=== PATIENT | male | born 1990 | race Caucasian/White ===

== ENCOUNTER → 2019-11-27 15:48 | Outpatient (BNVA) | payer OTHER, SELFPAY | PROVIDERS: Family Provider Orthopaedic Surgery Adult Reconstructive Orthopaedic Surgery; PCP Orthopaedic Surgery Adult Reconstructive Orthopaedic Surgery; Visit Provider Emergency Medicine | DX: R22.42 Localized swelling, mass and lump, left lower limb (principal); Z96.642 Presence of left artificial hip joint | CPT/HCPCS: 73552 ==

== ENCOUNTER → 2019-11-28 09:37 | Outpatient (BNVA) | payer OTHER, SELFPAY | PROVIDERS: Family Provider Orthopaedic Surgery Adult Reconstructive Orthopaedic Surgery; PCP Orthopaedic Surgery Adult Reconstructive Orthopaedic Surgery; Referring Provider Emergency Medicine; Visit Provider Emergency Medicine | DX: R22.42 Localized swelling, mass and lump, left lower limb (principal) | CPT/HCPCS: 80048 ==

== ENCOUNTER 2019-12-05 07:57 | Outpatient (CLI) | payer OTHER, SELFPAY ==
--- NOTE | 2019-12-05 08:00 | CT_ITS ---
NOTE: Report was unsigned for reason: Order was edited. Original Signature date and time was: 12/05/19 0915 WS: [id number] CT LEFT FEMUR WITH AND WITHOUT CONTRAST. HISTORY: soft tissue mass Technique: All CT scans at [facility] use at least one of these dose optimization techniques: automated exposure control; mA and/or kV adjustment per patient size (includes targeted exams where dose is matched to clinical indication); or iterative reconstruction. DLP: 3477.30 mGy-cm. COMPARISON: Femur radiograph 11/27/2019. Patient is status post LEFT hip arthroplasty. There is some beam hardening artifact from the arthroplasty. Palpable abnormality corresponds to a complex fluid collection in the inferior LEFT gluteus maria a muscle. This collection extends over a length of 8.8 cm x 7.0 x 2.4 cm. There is peripheral enhancement. This collection is within the inferior gluteus maria a muscle and extends along the junction with the biceps femoris muscle. There is adjacent subcutaneous edema and enhancement. There is an additional fluid collection posterior to the more proximal femur, mid shaft of the prosthesis. Collection is poorly visualized due to artifact from the hardware but measures 3.2 x 1.3 cm. No additional fluid collections. [facility] femur LT w con [id number] Impression: 1. Palpable area corresponds to a fluid collection with peripherally enhancing wall in the inferior LEFT gluteus maximum muscle measuring 8.8 x 7.0 x 2.4 cm. Abuts the proximal biceps femoris muscle. Abscess is likely. 2. Additional smaller fluid collection with peripheral enhancing wall in the mo re proximal gluteus maria a muscle at the level of the mid prosthesis. This col lection measures 3.2 x 1.3 cm. Additional abscess should be considered. 3. If the hip prosthesis placement was recent these may be associated with ster ile postoperative collections. As the tucker are enhancing abscesses need to be excluded. Suggest follow-up with orthopedics.
[2019-12-05] MEDS: iohexol 300 mg/mL 100 mL Btl IV (08:37)
== END 2019-12-05 07:58 | disposition home or self-care (01) ==
LOC: RADWPI 08:04
PROVIDERS: Family Provider Orthopaedic Surgery Adult Reconstructive Orthopaedic Surgery; PCP Emergency Medicine; Visit Provider Emergency Medicine
DX: R22.42 Localized swelling, mass and lump, left lower limb (principal); Z96.642 Presence of left artificial hip joint
CPT/HCPCS: 73700; 73701; 73702; Q9967

== ENCOUNTER 2024-10-15 10:33 | Oncology outpatient (recurring) (ONCR) | payer OTHER, SELFPAY ==
[2024-10-15 11:21] LABS: Basophils % 0.5 %; Eosinophils # 0.1 10^3/uL (0.0-0.8); Hematocrit 36.9 % (37-53); Lymphocytes % 16.1 %; Mean Corpuscular Volume 84.4 fl (82-101); Mean Platelet Volume 8.6 fL (7.4-10.4); Monocytes # 0.6 10^3/uL (0.2-0.9); Monocytes % 10.7 %; Neutrophils # 4.16 10^3/uL (1.8-7.7); Neutrophils % 69.5 %; Nucleated Red Blood Cells % 0 %; Platelet Count 366 10^3/cmm (157-399); Red Blood Count 4.37 10^6/uL (3.85-5.65); Red Cell Distribution Width 16.4 % (12.1-15.1); White Blood Count 5.98 10^3/uL (3.29-11.43)
[2024-10-15 11:34] LABS: Erythrocyte Sedimentation Rate 16 mm/hr (0-10)
[2024-10-15 11:47] LABS: Alanine Aminotransferase 316 U/L (0-41); Alkaline Phosphatase 162 U/L (40-130); Anion Gap 16.9 (5-19); Aspartate Amino Transferase 139 U/L (0-40); Blood Urea Nitrogen 15 mg/dL (6-20); C Reactive Protein 10.7 mg/L (0.0-4.9); Calcium 9.2 mg/dL (8.5-10.5); Carbon Dioxide 24 mmol/L (22-29); Chloride 105 mmol/L (98-107); Glomerular Filtration Rate 129.9 mL/min (90-130); Glucose 101 mg/dL (65-115); Osmolality Calculated 293 mOsm/kg (285-295); Potassium 4.9 mmol/L (3.5-5.1); Sodium 141 mmol/L (136-145); Total Bilirubin 0.3 mg/dL (0.15-1.2)
== END 2024-10-15 23:59 | disposition home or self-care (01) ==
PROVIDERS: Internal Medicine; Family Provider Orthopaedic Surgery Adult Reconstructive Orthopaedic Surgery; PCP Emergency Medicine; Visit Provider Internal Medicine Medical Oncology
DX: B95.8 Unspecified staphylococcus as the cause of diseases classified elsewhere (principal)
CPT/HCPCS: 36592; 80053; 85025; 85651; 86140

== ENCOUNTER 2024-11-06 11:06 | Outpatient (CLI) | payer OTHER, SELFPAY | END 2024-11-06 11:07 | disposition home or self-care (01) | PROVIDERS: Family Provider Orthopaedic Surgery Adult Reconstructive Orthopaedic Surgery; PCP Internal Medicine; Visit Provider Internal Medicine | DX: T84.59XS Infection and inflammatory reaction due to other internal joint prosthesis, sequela (principal); Z96.649 Presence of unspecified artificial hip joint; Z79.899 Other long term (current) drug therapy | CPT/HCPCS: 86140 ==

== ENCOUNTER 2024-11-07 11:00 | Outpatient (CLI) | payer OTHER, SELFPAY ==
[2024-11-07 11:30] LABS: Basophils # 0.1 10^3/uL (0.0-0.1); Basophils % 0.9 %; Eosinophils # 0.4 10^3/uL (0.0-0.8); Eosinophils % 5.8 %; Hematocrit 45.6 % (37-53); Lymphocytes # 1.6 10^3/uL (0.8-4.8); Lymphocytes % 24.4 %; Mean Corpuscular Volume 84.3 fl (82-101); Mean Platelet Volume 8.6 fL (7.4-10.4); Monocytes # 0.8 10^3/uL (0.2-0.9); Monocytes % 11.6 %; Neutrophils # 3.74 10^3/uL (1.8-7.7); Nucleated Red Blood Cells % 0 %; Platelet Count 377 10^3/cmm (157-399); Red Blood Count 5.41 10^6/uL (3.85-5.65); Red Cell Distribution Width 13.9 % (12.1-15.1); White Blood Count 6.56 10^3/uL (3.29-11.43)
[2024-11-07 11:34] LABS: Erythrocyte Sedimentation Rate 3 mm/hr (0-10)
[2024-11-07 11:49] LABS: Alanine Aminotransferase 140 U/L (0-41); Albumin Level 4.3 g/dL (3.5-5.2); Alkaline Phosphatase 171 U/L (40-130); Aspartate Amino Transferase 66 U/L (0-40); Blood Urea Nitrogen 15 mg/dL (6-20); Calcium 9.3 mg/dL (8.5-10.5); Carbon Dioxide 26 mmol/L (22-29); Chloride 103 mmol/L (98-107); Globulin 2.6 g/dL (1.3-4.6); Glomerular Filtration Rate 111.3 mL/min (90-130); Glucose 78 mg/dL (65-115); Osmolality Calculated 290 mOsm/kg (285-295); Sodium 140 mmol/L (136-145); Total Bilirubin 0.3 mg/dL (0.15-1.2); Total Protein 6.9 g/dL (6.6-8.7)
== END 2024-11-07 11:01 | disposition home or self-care (01) ==
LOC: LAB 11:01
PROVIDERS: Family Provider Orthopaedic Surgery Adult Reconstructive Orthopaedic Surgery; PCP Internal Medicine; Visit Provider Internal Medicine
DX: T84.59XS Infection and inflammatory reaction due to other internal joint prosthesis, sequela (principal); Z96.649 Presence of unspecified artificial hip joint; Z79.899 Other long term (current) drug therapy
CPT/HCPCS: 80053; 85025; 85651

== ENCOUNTER 2024-11-12 10:30 | Oncology outpatient (recurring) (ONCR) | payer OTHER, SELFPAY ==
[2024-10-22 11:02] LABS: Basophils # 0.1 10^3/uL (0.0-0.1); Basophils % 1.1 %; Eosinophils # 0.2 10^3/uL (0.0-0.8); Eosinophils % 3.6 %; Hematocrit 35.9 % (37-53); Lymphocytes # 1.3 10^3/uL (0.8-4.8); Lymphocytes % 24.3 %; Mean Corpuscular Hemoglobin 27.1 pg (27-33); Mean Corpuscular Volume 84.7 fl (82-101); Mean Platelet Volume 8.5 fL (7.4-10.4); Monocytes # 0.7 10^3/uL (0.2-0.9); Neutrophils # 2.96 10^3/uL (1.8-7.7); Neutrophils % 56.8 %; Nucleated Red Blood Cells % 0 %; Platelet Count 374 10^3/cmm (157-399); Red Blood Count 4.24 10^6/uL (3.85-5.65); Red Cell Distribution Width 15.8 % (12.1-15.1); White Blood Count 5.22 10^3/uL (3.29-11.43)
[2024-10-22 11:07] LABS: Erythrocyte Sedimentation Rate 16 mm/hr (0-10)
[2024-10-22 11:19] LABS: Alanine Aminotransferase 266 U/L (0-41); Albumin Level 4.3 g/dL (3.5-5.2); Alkaline Phosphatase 184 U/L (40-130); Anion Gap 14.2 (5-19); Aspartate Amino Transferase 102 U/L (0-40); Blood Urea Nitrogen 17 mg/dL (6-20); C Reactive Protein 9.5 mg/L (0.0-4.9); Calcium 9.4 mg/dL (8.5-10.5); Carbon Dioxide 24 mmol/L (22-29); Chloride 106 mmol/L (98-107); Glomerular Filtration Rate 129.9 mL/min (90-130); Glucose 101 mg/dL (65-115); Osmolality Calculated 292 mOsm/kg (285-295); Potassium 4.2 mmol/L (3.5-5.1); Sodium 140 mmol/L (136-145); Total Bilirubin 0.3 mg/dL (0.15-1.2); Total Protein 7.3 g/dL (6.6-8.7)
[2024-10-29 10:59] LABS: Basophils % 0.8 %; Eosinophils # 0.3 10^3/uL (0.0-0.8); Eosinophils % 5.8 %; Hematocrit 42.3 % (37-53); Lymphocytes # 0.9 10^3/uL (0.8-4.8); Lymphocytes % 19.2 %; Mean Corpuscular HGB Conc 32.4 g/dL (30-55); Mean Corpuscular Volume 83.4 fl (82-101); Mean Platelet Volume 8.5 fL (7.4-10.4); Monocytes # 0.7 10^3/uL (0.2-0.9); Monocytes % 14.6 %; Neutrophils # 2.84 10^3/uL (1.8-7.7); Neutrophils % 59.2 %; Nucleated Red Blood Cells % 0 %; Platelet Count 335 10^3/cmm (157-399); Red Blood Count 5.07 10^6/uL (3.85-5.65); Red Cell Distribution Width 14.7 % (12.1-15.1)
[2024-10-29 11:00] LABS: Erythrocyte Sedimentation Rate 8 mm/hr (0-10)
[2024-10-29 11:15] LABS: Alanine Aminotransferase 133 U/L (0-41); Albumin Level 4.3 g/dL (3.5-5.2); Alkaline Phosphatase 181 U/L (40-130); Aspartate Amino Transferase 47 U/L (0-40); Blood Urea Nitrogen 16 mg/dL (6-20); C Reactive Protein 5.3 mg/L (0.0-4.9); Calcium 9.4 mg/dL (8.5-10.5); Carbon Dioxide 24 mmol/L (22-29); Chloride 101 mmol/L (98-107); Globulin 2.9 g/dL (1.3-4.6); Glomerular Filtration Rate 111.3 mL/min (90-130); Glucose 76 mg/dL (65-115); Osmolality Calculated 282 mOsm/kg (285-295); Sodium 136 mmol/L (136-145); Total Bilirubin 0.4 mg/dL (0.15-1.2); Total Protein 7.2 g/dL (6.6-8.7)
--- NOTE | 2024-10-31 15:26 | PC.NURSE ---
Removed pts PICC line from right upper arm. 47cm removed. Catheter in tact. Pressure bandage applied. Educated pt to leave dressing in place for 24 hours, no heavy lifting. Pt tolerated well. No redness or irritation noted at insertion site.
== END 2024-11-15 23:59 | disposition home or self-care (01) ==
PROVIDERS: Internal Medicine; Family Provider Orthopaedic Surgery Adult Reconstructive Orthopaedic Surgery; PCP Emergency Medicine; Visit Provider Internal Medicine Medical Oncology
DX: Z53.9 Procedure and treatment not carried out, unspecified reason (principal)
CPT/HCPCS: 36592; 80053; 85025; 85651; 86140

== ENCOUNTER 2024-11-12 11:16 | Outpatient (CLI) | payer OTHER, SELFPAY ==
--- NOTE | 2024-11-12 11:28 | XR_ITS ---
WS: [id number] Exam: XR hip LT 2-3V wo/w pel* [id number] Date/Time of Exam: 11/12/2024 11:39 AM Reason For Exam: LEFT HIP PAIN Comparison 11/27/2019. There is an acute fracture through the greater trochanter with some separation. There is also fractur e that is nondisplaced involving the upper diaphyses of the femur. A total arthroplasty is in place r emaining in satisfactory position. 3 encircling cables are noted about the upper femur. The visualize d pelvis is intact. IMPRESSION1. Avulsion fracture of the greater trochanter with slight lateral separation of the fragme nt. There is also a nondisplaced fracture involving the upper diaphysis of the femur in the region of the the femoral component of a total hip replacement.
== END 2024-11-12 11:17 | disposition home or self-care (01) ==
LOC: RAD 11:21
PROVIDERS: Family Provider Orthopaedic Surgery Adult Reconstructive Orthopaedic Surgery; PCP Internal Medicine; Visit Provider Orthopaedic Surgery
DX: Z47.89 Encounter for other orthopedic aftercare (principal); S72.112A Displaced fracture of greater trochanter of left femur, initial encounter for closed fracture; S72.325A Nondisplaced transverse fracture of shaft of left femur, initial encounter for closed fracture; X58.XXXA Exposure to other specified factors, initial encounter
CPT/HCPCS: 73502

== ENCOUNTER 2024-11-18 10:51 | Outpatient (CLI) | payer OTHER, SELFPAY ==
[2024-11-18 11:12] LABS: Basophils % 0.6 %; Eosinophils # 0.2 10^3/uL (0.0-0.8); Eosinophils % 2.6 %; Hematocrit 48.1 % (37-53); Lymphocytes # 1.6 10^3/uL (0.8-4.8); Mean Corpuscular HGB Conc 32.2 g/dL (30-55); Mean Corpuscular Hemoglobin 26.7 pg (27-33); Mean Corpuscular Volume 82.9 fl (82-101); Mean Platelet Volume 8.4 fL (7.4-10.4); Monocytes # 0.7 10^3/uL (0.2-0.9); Monocytes % 10.6 %; Neutrophils # 3.72 10^3/uL (1.8-7.7); Nucleated Red Blood Cells % 0 %; Platelet Count 339 10^3/cmm (157-399); Red Cell Distribution Width 13.4 % (12.1-15.1)
[2024-11-18 11:32] LABS: Alanine Aminotransferase 66 U/L (0-41); Albumin Level 4.7 g/dL (3.5-5.2); Alkaline Phosphatase 165 U/L (40-130); Anion Gap 15.2 (5-19); Aspartate Amino Transferase 30 U/L (0-40); Blood Urea Nitrogen 14 mg/dL (6-20); Calcium 9.5 mg/dL (8.5-10.5); Carbon Dioxide 28 mmol/L (22-29); Chloride 103 mmol/L (98-107); Globulin 2.9 g/dL (1.3-4.6); Glomerular Filtration Rate 97.2 mL/min (90-130); Glucose 72 mg/dL (65-115); Osmolality Calculated 293 mOsm/kg (285-295); Potassium 4.2 mmol/L (3.5-5.1); Sodium 142 mmol/L (136-145); Total Bilirubin 0.5 mg/dL (0.15-1.2); Total Protein 7.6 g/dL (6.6-8.7)
== END 2024-11-18 10:52 | disposition home or self-care (01) ==
LOC: LAB 10:57
PROVIDERS: PCP Internal Medicine; Visit Provider Internal Medicine
DX: Z79.899 Other long term (current) drug therapy (principal)
CPT/HCPCS: 36415; 80053; 85025; 86140

== ENCOUNTER 2024-12-10 15:25 | Outpatient (CLI) | payer OTHER, SELFPAY ==
--- NOTE | 2024-12-10 15:35 | XRR_ITS ---
PROCEDURE INFORMATION: Exam: XR Left Hip Exam date and time: 12/10/2024 3:46 PM Age: 34 years old Clinical indication: Hip pain; Prior surgery; Surgery date: 6+ months; Surgery type: Left hip replacement; Left hip infection after hip replacement done on nov 03, temporary replacement used after infection; Additional info: Orthorpedic aftercare left hip pain TECHNIQUE: Imaging protocol: Radiologic exam of the left hip. Views: 2 or 3 views hip with pelvis when performed. COMPARISON: CR XR hip LT 2-3V wo/w pel* [id number] 11/12/2024 11:42 AM FINDINGS: Bones/joints: Left hip arthroplasty changes in place, similar to prior exam. Greater trochanteric avulsion fracture with lateral separation again seen similar to prior exam. Proximal femoral diaphyseal somewhat horizontally oriented fracture in the region of the femoral component of total hip replacement again seen, best visualized on oblique images. Soft tissues: Unremarkable. XR/XR hip LT 2-3V wo/w pel* [id number] IMPRESSION: 1. Left hip arthroplasty changes in place, similar to prior exam. 2. Greater trochanteric avulsion fracture with lateral separation again seen similar to prior exam. 3. Proximal femoral diaphyseal somewhat horizontally oriented fracture in the region of the femoral component of total hip replacement again seen, best visualized on oblique images, similar to prior exam.
== END 2024-12-10 15:26 | disposition home or self-care (01) ==
LOC: RAD 15:33
PROVIDERS: Visit Provider Orthopaedic Surgery
DX: Z47.89 Encounter for other orthopedic aftercare (principal); Z98.890 Other specified postprocedural states; S72.112D Displaced fracture of greater trochanter of left femur, subsequent encounter for closed fracture with routine healing; X58.XXXA Exposure to other specified factors, initial encounter; R93.7 Abnormal findings on diagnostic imaging of other parts of musculoskeletal system; M97.02XD Periprosthetic fracture around internal prosthetic left hip joint, subsequent encounter
CPT/HCPCS: 73502

== ENCOUNTER 2025-05-06 14:04 | Outpatient (CLI) | payer OTHER, SELFPAY ==
--- NOTE | 2025-05-06 14:14 | XRR_ITS ---
PROCEDURE INFORMATION: Exam: XR Left Hip Exam date and time: 05/06/2025 2:25 PM Age: 35 years old Clinical indication: Hip pain; Left hip; Prior surgery; Surgery date: 6+ months; Surgery type: Replacement on nov 03, reimplant April 02; Additional info: Left hip pain TECHNIQUE: Imaging protocol: Radiologic exam of the left hip. Views: 2 or 3 views hip with pelvis when performed. COMPARISON: CR XR hip LT 2-3V wo/w pel* [id number] 12/10/2024 3:46 PM FINDINGS: Tubes, catheters and devices: Status post total left hip arthroplasty revision with all new instrumentation. Two of the screws 2 anchor of the acetabular cup protrude into the left medial pelvis. No prosthetic loosening. Bones/joints: No fracture or dislocation. Soft tissues: Unremarkable. XR/XR hip LT 2-3V wo/w pel* [id number] IMPRESSION: No acute findings.
== END 2025-05-06 14:05 | disposition home or self-care (01) ==
PROVIDERS: Visit Provider Orthopaedic Surgery
DX: Z47.89 Encounter for other orthopedic aftercare (principal); Z97.8 Presence of other specified devices; Z98.890 Other specified postprocedural states
CPT/HCPCS: 73502

== ENCOUNTER 2025-06-24 09:38 | Outpatient (CLI) | payer OTHER, SELFPAY ==
--- NOTE | 2025-06-24 09:46 | XR_ITS ---
WS: [id number] Left hip, 2 views, AP pelvis, 06/24/2025 Clinical Data: LEFT HIP PAIN Comparison: Pelvis and left hip, 05/06/2025 Findings: The left hip arthroplasty remains the same. No periprosthetic fractures or loosening is seen. The right hip is normal. The adjacent pelvis shows no change. XR/XR hip LT 2-3V wo/w pel* [id number] Impression: Stable left hip arthroplasty.
== END 2025-06-24 09:39 | disposition home or self-care (01) ==
PROVIDERS: PCP Family Medicine; Visit Provider Orthopaedic Surgery
DX: M25.552 Pain in left hip (principal); Z96.642 Presence of left artificial hip joint
CPT/HCPCS: 73502